=== PATIENT | female | born 1970 | race Caucasian/White ===

== ENCOUNTER 2018-05-14 19:15 | Inpatient (IN) | payer OTHER ==
[~2018-05-14] VITALS: Ht 161.3 cm; Wt 89.6 kg
[~2018-05-14 19:15] MED LIST: CELEXA20 MG PO; ELAVIL25 MG PO; LORCET 5-325 M1 EACH PO; NORVASC10 MG PO; SYNTHROID50 MCG PO; ZANAFLEX4 M1 PO
[2018-05-15 06:03] VITALS: BP 141/86
[2018-05-15 15:30] VITALS: BP 153/87
[2018-05-15 19:55] VITALS: BP 127/78
[2018-05-15 23:26] VITALS: BP 133/78
[2018-05-16 07:19] VITALS: BP 113/75
[2018-05-16 16:19] VITALS: BP 136/82
[2018-05-16 23:21] VITALS: BP 150/88
[2018-05-17 09:00] VITALS: BP 123/75
[2018-05-17] MEDS ORDERED: ENDOCET 5-3251 EACH PO (14:19)
[2018-05-17 15:16] VITALS: BP 140/77
== END 2018-05-17 16:18 | disposition home or self-care (01) | DRG 460 ==
LOC: ENRESERV 19:15 → 3EAST 05-15 05:19 → 2SOUTH 05-15 05:19 → EDSTATUS 05-15 09:43 → 2SOUTH 05-15 09:47 → SDC 05-15 12:51 → ENRESERV 05-15 13:47 → 3EAST 05-15 15:09
PROVIDERS: Neurological Surgery
DX: M51.87 Other intervertebral disc disorders, lumbosacral region (principal); M54.16 Radiculopathy, lumbar region; I10 Essential (primary) hypertension; E03.9 Hypothyroidism, unspecified; K21.9 Gastro-esophageal reflux disease without esophagitis; M96.69 Fracture of other bone following insertion of orthopedic implant, joint prosthesis, or bone plate; Z98.1 Arthrodesis status
CPT/HCPCS: 72100; 76000; 81025; 86850; 86900; 86901; C1713; J0690; J1100; J1170; J1885; J2250; J2270; J2405; J3010; J3480; Q0175